=== PATIENT | male | born 1975 | race Two or more races ===

== ENCOUNTER 2018-04-18 09:05 | Emergency (ER) | payer OTHER ==
[~2018-04-18] VITALS: Ht 167.6 cm; Wt 72.6 kg
[2018-04-18] MEDS ORDERED: DOXYCYCLINE HY100 MG PO (12:09)
[2018-04-18] MEDS ORDERED: IBUPROFEN800 MG PO (12:09)
== END 2018-04-18 12:12 | disposition home or self-care (01) ==
LOC: ER 09:05 → EDBD 09:25 → ER 09:25
DX: L02.416 Cutaneous abscess of left lower limb (principal); B95.61 Methicillin susceptible Staphylococcus aureus infection as the cause of diseases classified elsewhere

== ENCOUNTER 2019-12-20 20:26 | Emergency (ER) | payer OTHER ==
[~2019-12-20] VITALS: Ht 167.6 cm; Wt 59.0 kg
[~2019-12-20 20:26] MED LIST: DOXYCYCLINE HY100 MG PO; IBUPROFEN800 MG PO
== END 2019-12-21 00:37 | disposition home or self-care (01) ==
LOC: ER 20:26
DX: N45.1 Epididymitis (principal); N50.811 Right testicular pain; N30.01 Acute cystitis with hematuria